=== PATIENT | female | born 1985 | race American Indian/Alaskan Native ===

== ENCOUNTER 2017-12-13 12:16 | Emergency (ER) | payer MEDICAID ==
[2017-12-13 12:17] VITALS: BMI 36.5
[2017-12-13 12:44] VITALS: BP 116/74; PULSE 90; RESP 18; TEMP 98; O2SAT 99
--- NOTE | 2017-12-13 13:41 | ED PDOC ---
HPI: CCC, URI, Sore Throat Time Seen by Provider: 12/13/17 12:44 Chief Complaint (Nursing): ENT Problem Chief Complaint (Provider): Congestion, nasal drainage History Per: Patient History/Exam Limitations: no limitations Current Symptoms Are (Timing): Still Present Associated Symptoms: Sore Throat, Nasal Congestion. denies: Fever, Chills, Sputum Additional Complaint(s): 31 yo female with history of high cholesterol presents for evaluation of sinus pressure, nasal congestion, and runny nose. Patient reports she was seen by a dentist last week for right upper dental pain and was placed on Azithromycin. She states she took 4 doses of it and had 1 left and indicates congestion and runny nose began yesterday. Patient also states when she blew her nose, it smelled abnormal. She is concerned because she had 1 day left of antibiotics and was not sure if she needed another prescription. Patient has not taken any other medications for symptoms. She was told by her dentist that the dental pain was from a sinus infection and if pain did not improve, she should follow up with dentist this week. Denies fever chills. PMD: Collin Medrano Past Medical History Reviewed: Historical Data, Nursing Documentation, Vital Signs Vital Signs: Last Vital Signs Temp 98 F 12/13/17 12:41 Pulse 90 12/13/17 12:41 Resp 18 12/13/17 12:41 BP 116/74 12/13/17 12:41 Pulse Ox 99 12/13/17 12:41 - Medical History PMH: Anemia, Asthma (not on any meds), Diabetes, Hypercholesterolemia (NOT TAKING MED.) - Surgical History Surgical History: No Surg Hx - Family History Family History: States: Unknown Family Hx - Immunization History Hx Tetanus Toxoid Vaccination: No Hx Influenza Vaccination: Yes Hx Pneumococcal Vaccination: No - Home Medications Home Medications: Ambulatory Orders Medication Instructions Recorded Atorvastatin [Lipitor] 10 mg PO HS 06/11/17 Ibuprofen [Motrin] 600 mg PO Q6 #30 tab 06/11/17 MetFORMIN [glucOPHAGE] 500 mg PO DAILY 06/11/17 Lidocaine 5% [Lidoderm] 1 patch TP DAILY #30 patch 09/30/17 Methocarbamol [Robaxin] 750 mg PO QID #40 tab 09/30/17 Guaifen/Phenyleph/Acetaminophn 1 tab PO BID #14 tab 12/13/17 [Mucinex Fast-Max Cold & Sinus 325 mg-200 mg-5] - Allergies Allergies/Adverse Reactions: Allergies Allergy/AdvReac Type Severity Reaction Status Date / Time naproxen Allergy Intermediate NAUSEA Verified 09/30/17 19:17 Penicillins Allergy Mild NAUSEA Verified 09/30/17 19:17 Review of Systems ROS Statement: Except As Marked, All Systems Reviewed And Found Negative Constitutional: Negative for: Fever, Chills ENT: Positive for: Nose Discharge (Runny nose), Nose Congestion, Other (Sinus pressure) Physical Exam - Reviewed Nursing Documentation Reviewed: Yes Vital Signs Reviewed: Yes - Physical Exam Appears: Positive for: Non-toxic, No Acute Distress Head Exam: Positive for: ATRAUMATIC, NORMOCEPHALIC Skin: Positive for: Normal Color, Warm, Dry Eye Exam: Positive for: Normal appearance ENT: Positive for: Normal ENT Inspection, TM Is/Are (normal) Neck: Positive for: Normal, Painless ROM Cardiovascular/Chest: Negative for: Tachycardia Respiratory: Negative for: Respiratory Distress Extremity: Positive for: Normal ROM Neurologic/Psych: Positive for: Alert, Oriented. Negative for: Motor/Sensory Deficits - ECG O2 Sat by Pulse Oximetry: 99 (RA) Pulse Ox Interpretation: Normal Medical Decision Making Medical Decision Making: Initial Impression: Sinus pressure and nasal congestion Scribe Attestation: Documented by Al Martinez acting as a scribe for Madelin CASTELLANOS. Provider Scribe Attestation: All medical record entries made by the Scribe were at my direction and personally dictated by me. I have reviewed the chart and agree that the record accurately reflects my personal performance of the history, physical exam, medical decision making, and the department course for this patient. I have also personally directed, reviewed, and agree with the discharge instructions and disposition. Disposition - Clinical Impression Clinical Impression: Sinusitis - Patient ED Disposition Is Patient to be Admitted: No Counseled Patient/Family Regarding: Diagnosis, Need For Followup, Rx Given - Disposition Referrals: [facility] [Outside] Disposition: Routine/Home Disposition Time: 13:41 Condition: GOOD Prescriptions: Guaifen/Phenyleph/Acetaminophn [Mucinex Fast-Max Cold & Sinus 325 mg-200 mg-5] 1 tab PO BID #14 tab Instructions: Sinusitis, Adult (DC) Forms: Desti (Portuguese)
== END 2017-12-13 14:01 | disposition home or self-care (01) ==
LOC: H.ER 12:16
DX: J32.9 Chronic sinusitis, unspecified (principal); J45.909 Unspecified asthma, uncomplicated; E11.9 Type 2 diabetes mellitus without complications; Z79.84 Long term (current) use of oral hypoglycemic drugs; E78.00 Pure hypercholesterolemia, unspecified; Z88.0 Allergy status to penicillin